=== PATIENT | male | born 1965 | race Caucasian/White ===

== ENCOUNTER → 2017-02-06 | Outpatient (CLI) | payer BC, OTHER, SELFPAY | LOC: EXRD 09:52 | DX: M25.561 Pain in right knee (principal) | CPT/HCPCS: 73560 ==

== ENCOUNTER 2021-07-13 16:28 | Emergency (ER) | payer OTHER ==
[~2021-07-13] VITALS: Ht 182.9 cm; Wt 113.4 kg
[~2021-07-13 16:28] MED LIST: NAPROSYN EC 50500 MG GT; PERCOCET 5/325 T1 EA PO
[2021-07-13 18:39] LABS: HEMOGLOBIN 15.4 gm/dl (14.0-17.5); RED BLOOD COUNT 5.25 M/UL (4.20-5.50); WHITE BLOOD COUNT 6.8 K/UL (4.5-11.0)
[2021-07-13 19:18] LABS: BUN/CREATININE RATIO 17 (0-10)
== END 2021-07-13 20:45 | disposition home or self-care (01) ==
LOC: ER1 16:28
PROVIDERS: Physician Assistant Medical
DX: U07.1 COVID-19 (principal); Z23 Encounter for immunization; F17.210 Nicotine dependence, cigarettes, uncomplicated; Z79.899 Other long term (current) drug therapy
CPT/HCPCS: 71045; 80053; 84484; 85025; 93005; 99284; M0243

== ENCOUNTER 2022-02-13 21:37 | Emergency (ER) | payer SELFPAY ==
[2022-02-13 23:03] LABS: HEMOGLOBIN 14.6 gm/dl (14.0-17.5); RED BLOOD COUNT 4.89 M/UL (4.20-5.50); WHITE BLOOD COUNT 9.8 K/UL (4.5-11.0)
[2022-02-13 23:25] LABS: BUN/CREATININE RATIO 22 (0-10)
== END 2022-02-14 03:34 | disposition home or self-care (01) ==
LOC: ER1 21:37
PROVIDERS: Student in an Organized Health Care Education/Training Program
DX: R50.9 Fever, unspecified (principal); R11.0 Nausea; M25.462 Effusion, left knee; I11.9 Hypertensive heart disease without heart failure; Z20.822 Contact with and (suspected) exposure to COVID-19
CPT/HCPCS: 0240U; 71045; 73564; 80053; 85025; 85652; 86140; 99283